=== PATIENT | male | born 1965 | race Two or more races ===

== ENCOUNTER 2021-08-08 14:29 | Emergency (ER) | payer OTHER ==
[~2021-08-08] VITALS: Ht 152.4 cm; Wt 67.1 kg
== END 2021-08-08 17:58 | disposition home or self-care (01) ==
LOC: ER 14:29
DX: R07.81 Pleurodynia (principal); S22.42XA Multiple fractures of ribs, left side, initial encounter for closed fracture; Y93.17 Activity, water skiing and wake boarding; Y92.832 Beach as the place of occurrence of the external cause